=== PATIENT | female | born 1990 | race Caucasian/White ===

== ENCOUNTER 2018-08-24 14:40 | Day surgery (SDC) | payer OTHER, SELFPAY ==
[2018-08-24 15:20] VITALS: BP 132/82; TEMP 98.2; BMI 34.7
[2018-08-24 15:25] LABS: Amnisure Test No Membranes Rupture (No Rupture)
[2018-08-24 15:27] LABS: Amnisure Internal Control QC ACCEPTABLE (ACCEPTABLE)
--- NOTE | 2018-08-24 15:57 | PDOC.FPROB ---
FMR OB H&P: HPI - History of Present Illness Chief Complaint: Leaking of fluid Indentification: 28 year old at 37.2 wks History of Present Illness: 28 year old at 37.2 wks presents with leaking of fluid since Saturday. Patient states she is uncertain whether or not she lost her mucous plug. She describes it as clear fluid with mucous consistency. Patient denies vaginal bleeding. She has abdominal tightening, but does not think she is actually having contractions. She denies being in any pain. Patient endorses good movement. 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 - Surgical History Sx History: None - Social History Social History: Denies alcohol, tobacco, or drug use - Family History Family History: Insignificant FMR OB H&P: Medications - Current Home Medications: Medication Instructions Recorded Confirmed Type No Known 08/24/18 08/24/18 History Allergies/Adverse Reactions: Allergies Allergy/AdvReac Type Severity Reaction Status Date / Time Penicillins Allergy Verified 08/24/18 15:07 FMR OB H&P: ROS - Review of Systems General: denies: fever/chills, weight/appetite/sleep changes Eyes: denies: vision changes, double vision ENT: denies: nasal congestion, rhinorrhea, sore throat Cardiovascular: denies: chest pain, edema Respiratory: denies: cough, congestion Gastrointestinal: denies: abdominal pain, nausea, vomiting Genitourinary (Female): reports: vaginal discharge. denies: dysuria, vaginal bleeding, vaginal pressure Musculoskeletal: denies: pain, stiffness Neurologic: denies: numbness, seizures Hematologic/Lymphatic: denies: prolonged or excessive bleeding Psychological: denies: depression, anxiety FMR OB H&P: Vital Signs - Maternal Vital signs: Vital Signs - First Documented Temp Pulse Resp BP 98.2 F 82 18 132/82 08/24/18 14:57 08/24/18 14:57 08/24/18 14:57 08/24/18 14:57 - Heart Tones Baseline: 145 Variability: moderate Acceleration: present Deceleration: absent Category: category 1 [place] contractions every: q3 min FMR OB H&P: Physical Exam - Physical Exam General: NAD, awake, alert and oriented HEENT: MMM, grossly normal vision, grossly normal hearing Neck: supple Heart: RRR General: no respiratory distress Abdomen: soft, gravid, non-tender Musculoskeletal: pulses present, FROM in all four extremities Neurological: no tremor, no focal deficit Skin: no rash, capillary refill <2 seconds Lymphatic: no unusual bruising or bleeding, no purpura Psychiatric: intact recent and remote memory, good judgement and insight, normal mood and affect - Pelvic Exam Vulva: normal hair distribution, appropriate beto stage Cervix: no masses SVE: /-3 FMR OB H&P: Results - Labs Lab results: Laboratory Results - last 24 hr 08/24/18 15:03 Amnio Swab Test No Membranes Rupture FMR OB H&P: A/P - Problem List (1) Amniotic fluid leaking Current Visit: Yes Status: Acute Code(s): O42.90 - JOHNNY ROM, 7TH0 BETW RUPT & ONST LABR, UNSP WEEKS OF GEST (2) Term Current Visit: Yes Status: Acute Code(s): Z34.80 - ENCOUNTER FOR SUPRVSN OF NORMAL , UNSP TRIMESTER Disposition: 28 year old at 37.2 wks presents with leaking of fluid 1. Leaking of fluid - Amnisure negative - Speculum exam performed; negative valsalva and cough test 2. TIUP - Does not appear to be in labor or ruptured - D/c home with return precautions - Cat I strip - /-3; not feeling contractions Dispo: Patient does not appear to have SROM'd or be in active labor. Plan to d/ c home today with labor precautions. Discussion: Date/Time: 08/24/181553 This H&P was discussed with Dr. Kc who agrees with the above documentation and plan. Signature: Hansa Tee, DO PGY-2
== END 2018-08-24 16:20 | disposition home or self-care (01) ==
LOC: L&D/OP 14:40
PROVIDERS: ATTEND Obstetrics & Gynecology
DX: O99.89 Other specified diseases and conditions complicating pregnancy, childbirth and the puerperium (principal); N89.8 Other specified noninflammatory disorders of vagina; R10.9 Unspecified abdominal pain; Z3A.37 37 weeks gestation of pregnancy; Z88.0 Allergy status to penicillin
CPT/HCPCS: 84112; 99283

== ENCOUNTER 2018-09-08 06:00 | Inpatient (IN) | payer OTHER ==
[2018-09-08] MEDS: Lactated Ringer's 1,000 ML IV SCH ×2 (07:52→12:50)
[2018-09-08 08:06] VITALS: BMI 33.6
[2018-09-08] MEDS ORDERED: Butorphanol Tartrate 1 MG/ML VIAL SLOW IVP PRN (08:29)
[2018-09-08] MEDS ORDERED: Misoprostol 200 MCG TAB PR PRN (08:29)
[2018-09-08] MEDS ORDERED: Diphenoxylate HCl/Atropine Tablet PO PRN ×2 (08:29)
[2018-09-08] MEDS ORDERED: NS / Oxytocin 40 units/1000ml 1,000 ML IV PRN (08:29)
[2018-09-08] MEDS ORDERED: Promethazine HCl 25 MG/ML VIAL IM PRN ×3 (08:29→19:48)
[2018-09-08] MEDS ORDERED: Carboprost 250 MCG/ML AMP IM PRN (08:29)
[2018-09-08] MEDS ORDERED: Ondansetron PF 4 MG/2 ML Vial IVP PRN ×3 (08:29→19:48)
[2018-09-08] MEDS ORDERED: HYDROcodone/Acetaminophen 5/325 mg Tablet PO PRN ×3 (08:29→19:48)
[2018-09-08] MEDS ORDERED: Lidocaine 1% (PF) 30 ML VIAL SC PRN (08:29)
[2018-09-08] MEDS ORDERED: NS w/ Oxytocin 10 units 500 ML IV SCH ×2 (08:30)
[2018-09-08] MEDS ORDERED: NS w/ Oxytocin 10 units 500 ML ONE (08:42)
[2018-09-08 08:48] LABS: Hemoglobin 11.6 g/dL (12.0-16.0); Mean Corpuscular HGB CONC 34.6 g/dL (32.0-36.0); Mean Corpuscular Hemoglobin 30.5 pg (27.0-31.0); Mean Corpuscular Volume 88.1 fL (78.0-98.0); Mean Platelet Volume 7.3 fL (7.4-10.4); Platelet Count 438 thou/uL (130-400); RBC Distribution Width 11.8 % (11.5-14.5); Red Blood Cell (RBC) Count 3.82 mill/uL (4.20-5.40); White Blood Cell (WBC) Count 10.1 thou/uL (4.8-10.8)
[2018-09-08 09:27] LABS: HBSAg Index 0.18 S/CO (0-0.99); Hep B Surf Ag Non-Reactive S/CO (NonReactive); Syphilis Antibody Nonreactive (Nonreactive); Syphilis Antibody Index 0.03 S/CO (<1.00 Non-Reactive)
[2018-09-08] MEDS ORDERED: Fentanyl 4 mcg/Bup 0.1% Cadd 100 ML ONE (11:53)
[2018-09-08] MEDS ORDERED: Lidocaine 1.5% w/Epi 1:200K 30 ML VIAL (Epid Use) ONE (11:53)
[2018-09-08] MEDS ORDERED: Eucerin (Mineral Oil/Petrolatum,White) 30 gm Jar TOP PRN (12:52)
[2018-09-08] MEDS ORDERED: Lactated Ringer's 500 ML IV PRN (12:52)
[2018-09-08] MEDS ORDERED: Acetaminophen 325 MG TAB PO PRN (12:52)
[2018-09-08] MEDS ORDERED: ePHEDrine/0.9% NaCl/PF SYRINGE 50 mg/10 ml SLOW IVP PRN (12:52)
[2018-09-08] MEDS ORDERED: diphenhydrAMINE 50 MG/ML VIAL IVP PRN (12:52)
[2018-09-08] MEDS ORDERED: Naloxone HCl 0.4 mg/ml Vial IVP PRN ×2 (12:52)
[2018-09-08] MEDS ORDERED: Fentanyl 4 mcg/Bupivacaine 0.1% Cassette 100 ML EPIDURAL SCH (13:00)
[2018-09-08] MEDS ORDERED: Communication Order-Pharmacy FS SCH (13:00)
--- NOTE | 2018-09-08 17:27 | PDOC.LDHP ---
Labor and Delivery H&P Chief complaint: other HPI: 20 at 39w 1d, presents to clinic c/o headache and elevated bp noted at 154 /95. Patient could not initially leave a urine. NST and BPP done and was 10/10. alfredito estimated at 8 pounds 15 ounces, but cervix remains, thick and unfavorable, and patient has a very narrow pelvis, unlikely to fit the estimated size. Urine at the end of visit obtained, and showed 3+ protein. Patient sent to L&D and was found to have labile BPs, but low platelets in the 90s, concerning for severe preeclamsia. Magnesium Sulfate started, and after reviewing the risks, benefits, and alternative of delivery, primary was selected for this afternoon. Grav: 1 Para: 0 Current complications: gestational hypertension Abnormal US findings: No Current medications: pre-ronda vitamins Allergies/Adverse Reactions: Allergies Allergy/AdvReac Type Severity Reaction Status Date / Time Penicillins Allergy Verified 08/24/18 15:07 Social history: none - Physical Exam Vital signs reviewed and normal: yes General: NAD, resting Heart: RRR Lungs: nonlabored breathing Abdomen: NTTP Extremeties: pitting edema FHT: category 1 - Assessment L&D Assessment: scheduled primary section - Plan Plan: to OR for section
--- NOTE | 2018-09-08 18:56 | PDOC.LDHP ---
Labor and Delivery H&P Chief complaint: scheduled induction Current gestational age (weeks): 39 Due date: 09/12/17 Grav: 3 Para: 2 Current complications: none Abnormal US findings: No Current medications: pre- vitamins Allergies/Adverse Reactions: Allergies Allergy/AdvReac Type Severity Reaction Status Date / Time Penicillins Allergy Verified 08/24/18 15:07 Social history: none - Physical Exam Vital signs reviewed and normal: yes General: NAD, resting Heart: RRR Lungs: nonlabored breathing Abdomen: NTTP Extremeties: no edema FHT: category 1 - Vaginal Exam cm dilated: 4 Effacement: 75% Station: -2 - Assessment L&D Assessment: elective induction at term - Plan Plan: admit to L&D, labor augmentation if indicated
[2018-09-08] MEDS ORDERED: Varicella virus, LIVE 0.5 ML VIAL SC ONE (19:48)
[2018-09-08] MEDS ORDERED: Benzocaine/Menthol 20-0.5% 60 ML CAN TOP PRN (19:48)
[2018-09-08] MEDS ORDERED: Lanolin Ointment 7 GM TUBE TOP PRN (19:48)
[2018-09-08] MEDS ORDERED: Bisacodyl 10 MG SUPP PR PRN (19:48)
[2018-09-08] MEDS ORDERED: Adacel (T-DAP) 0.5 ML SYRINGE IM ONE (19:48)
[2018-09-08] MEDS ORDERED: Milk Of Magnesia 30 ML UDCUP PO PRN (19:48)
[2018-09-08] MEDS ORDERED: NS / Oxytocin 40 units/1000ml 1,000 ML IV SCH (19:48)
[2018-09-08] MEDS ORDERED: Zolpidem Tartrate 5 MG TAB PO PRN (19:48)
[2018-09-08] MEDS ORDERED: Measles/Mumps/Rubella 10 MCG/0.5 ML VIAL SC ONE (19:48)
[2018-09-08] MEDS ORDERED: Preparation H Ointment 28 GM TUBE PR PRN (19:48)
[2018-09-08] MEDS ORDERED: diphenhydrAMINE 25 MG CAP PO PRN (19:48)
[2018-09-08] MEDS: HYDROcodone/Acetaminophen 5/325 mg Tablet PO PRN (20:19)
[2018-09-08] MEDS: Docusate Calcium (SURFAK) 240 MG CAP PO SCH (20:20)
[2018-09-09] MEDS: Ibuprofen 800 MG TAB PO SCH ×3 (02:17→13:23)
[2018-09-09 05:55] LABS: Hemoglobin 9.6 g/dL (12.0-16.0); Mean Corpuscular HGB CONC 33.9 g/dL (32.0-36.0); Mean Corpuscular Hemoglobin 30.4 pg (27.0-31.0); Mean Corpuscular Volume 89.7 fL (78.0-98.0); Mean Platelet Volume 6.9 fL (7.4-10.4); Platelet Count 343 thou/uL (130-400); RBC Distribution Width 11.8 % (11.5-14.5); Red Blood Cell (RBC) Count 3.17 mill/uL (4.20-5.40); White Blood Cell (WBC) Count 11.8 thou/uL (4.8-10.8)
[2018-09-09] MEDS: HYDROcodone/Acetaminophen 5/325 mg Tablet PO PRN (06:30)
[2018-09-09] MEDS: Docusate Calcium (SURFAK) 240 MG CAP PO SCH (08:41)
[2018-09-09] MEDS: Ferrous Sulfate 325 MG TAB PO SCH ×2 (08:41→15:59)
[2018-09-09] MEDS ORDERED: Prenatal Vitamin 1 TAB PO SCH (09:00)
[2018-09-09 11:40] VITALS: BP 118/67; TEMP 97.8
--- NOTE | 2018-09-09 12:45 | PDOC.PP ---
Post Progress Note Post Day #: 1 PO intake tolerated: yes Flatus: yes Ambulation: yes Vital Signs (12 hours) Temp Pulse Resp BP Pulse Ox 09/09/18 11:40 97.8 F 76 20 118/67 09/09/18 08:15 98.6 F 75 20 109/72 97 09/09/18 05:00 98.2 F 77 17 111/65 Weight Weight 215 lb - Physical Examination General: NAD Cardiovascular: no m/r/g, RRR Respiratory: clear to auscultation bilaterally Abdominal: + bowel sounds, lochia Extremities: negative homans (B) Skin: CS incision dry & intact, no rash Neurological: no gross focal deficits Psychiatric: A&Ox3, normal affect (DC HOME later today.) Result Diagrams: 09/09/18 05:42 Additional Labs: Post Labs Blood Type O POSITIVE 09/08/18 07:52 Hep Bs Antigen Non-Reactive S/CO (NonReactive) 09/08/18 07:52
--- NOTE | 2018-09-10 06:00 | DN ---
DATE OF PROCEDURE: 09/08/2018 PREOPERATIVE DIAGNOSIS: Intrauterine at 39 weeks and 3 days with a term induction of labor. The patient having a 4 cm cervix in clinic. POSTOPERATIVE DIAGNOSIS: Intrauterine at 39 weeks and 3 days with a term induction of labor. The patient having a 4 cm cervix in clinic. PROCEDURE: Pitocin induction of labor resulting in spontaneous vaginal delivery with first-degree laceration of the perineum. FINDINGS: Viable female infant, weighing 3341 g or 7 pounds 6 ounces. Apgars 9 and 9. QUANTITATIVE BLOOD LOSS: 141 mL. COMPLICATIONS: None. PROCEDURE IN DETAIL: The patient presented to [facility] where she was admitted to the labor and delivery service. The patient underwent a normal and uneventful labor with normal cervical dilatation until she was found to be completely dilated. She was then allowed to push and was able to bring the baby down and delivered the baby in a vertex presentation without difficulties. Once the head delivered in occiput anterior position, the shoulders followed spontaneously along with the rest of the baby's body. Once out the baby's mouth and nose were bulb suctioned. The cord was clamped and cut and baby was handed to waiting attendants. Cord blood was collected. Gentle fundal massage was performed and the placenta delivered intact without problems. Hemostasis was assured. Quantitative blood loss was calculated. Inspection of the cervix, vaginal vault, and perineum did not reveal any lacerations needing suturing. Once again, hemostasis was within normal limits and the patient was allowed to recover in the labor and delivery room. Baby went to nursery. Job ID: [id number]
== END 2018-09-09 17:35 | disposition home or self-care (01) | DRG 807 ==
LOC: EDSTATUS 06:00 → L&D 07:44 → 3SW 18:00
PROVIDERS: ADMIT Obstetrics & Gynecology; ATTEND Obstetrics & Gynecology
PROC: 10E0XZZ Delivery of Products of Conception, External Approach (ICD-10-PCS; principal; 2018-09-08)
PROC: 3E033VJ Introduction of Other Hormone into Peripheral Vein, Percutaneous Approach (ICD-10-PCS; 2018-09-08)
DX: O69.81X0 Labor and delivery complicated by cord around neck, without compression, not applicable or unspecified (principal); Z37.0 Single live birth; Z3A.39 39 weeks gestation of pregnancy; O70.0 First degree perineal laceration during delivery
CPT/HCPCS: 36415; 51702; 85027; 86780; 86850; 86900; 86901; 87340; 90716; J2001; J2405